=== PATIENT | female | born 1955 | race Caucasian/White ===

== ENCOUNTER 2018-08-15 09:41 | Outpatient (RCR) | payer MEDICARE ==
--- NOTE | 2018-07-20 12:07 | NUR ---
07/20/18 1044 Left voicemail with patient to inquire on how she is doing as she is not in IOP today. 1051 Patient called back stating that she was very tired this morning and could not attend IOP. Pt states that she needs a new PCP because her other PCP no longer takes her new insurance. Pt states she will be here for IOP on Monday and wants to attend Monday, Wednesdays and Fridays.
--- NOTE | 2018-07-24 09:11 | NUR ---
07/23/18 7481 Pt is in the office stating that she has a new PCP. Marisela Perez MD in [facility]. Pt states she had to find a new PCP because her insurance is not accepted at the PCP that she has been previously seeing.
--- NOTE | 2018-08-07 08:22 | NUR ---
08/06/18 Call to patient and left message inquiring on how she is feeling. Pt currently on medical hold.
--- NOTE | 2018-08-13 08:37 | NUR ---
08/10/18 Patient in today for Treatment team. Pt presents clean and neat, alert and oriented x 4. Pt recently on medical leave due to UTI. Pt states she feels much better now. pt denies any suicidal thoughts at this time. Pt states she she enjoys IOP and is getting alot out of it. Pt is asking to drop from 3x/week to 2x/week due. Pt states she is doing better and has alot of responsibilities at home. Pt will now continue with IOP 2x/week. Pt will follow up in one month. treatment team concluded.
[~2018-08-15 09:41] MED LIST: ALBUTEROL SUL0.083 % IN; ALPRAZOLAM ER0.5 MG PO; CHILD ASA81 MG PO; CLONIDINE0.2 MG PO; DULOXETINE HCL60 MG PO; DYMISTA1 SPR; FLUTICASONE IN; GABAPENTIN300 M2 PO; LIPITOR10 M1 PO; METFORMIN HCL500 M2 PO; MICROZIDE12.5 MG PO; MONTELUKAST SOD10 MG PO; MORPHINE SULFAT15 M3 PO; MORPHINE SULFAT60 M1 PO; REXULTI2 MG PO; SPIRIVA RE2.5 MCG/AC IN; SYMBICORT 80-4.5MCG IN; TIZANIDINE4 MG PO; VICTOZA18 MG/3 ML SC; XOLAIR150 MG SC; ZESTRIL5 M1 PO
== END 2018-08-16 23:59 | disposition home or self-care (01) ==
LOC: PATHWAYS 09:41
PROVIDERS: ATTEND Specialist
DX: F33.8 Other recurrent depressive disorders (principal); F41.1 Generalized anxiety disorder